=== PATIENT | female | born 1935 | race Caucasian/White ===

== ENCOUNTER → 2018-05-15 09:38 | Outpatient (CLI) | payer MEDICARE, SELFPAY ==
[2018-05-15 10:33] LABS: Alanine Aminotransferase 37 IU/L (9-52); Albumin 4.4 g/dL (3.5-5.0); Albumin Globulin Ratio 1.6 (1.0-2.8); Alkaline Phosphatase 57 U/L (38-126); Aspartate Aminotransferase 38 IU/L (14-36); BUN Creatinine Ratio 22.9 (6-22); Bilirubin Total 0.7 mg/dL (0.2-1.3); Blood Urea Nitrogen 16 mg/dL (7-17); Calcium 9.4 mg/dL (8.4-10.2); Carbon Dioxide 31 mmol/L (22-32); Chloride 99 mmol/L (98-107); Cholesterol 306 mg/dL (140-199); Estimated Glomerular Filt Rate > 60.0 mL/min (>60); Globulin 2.8 g/dL (1.7-4.1); Glucose 93 mg/dL (80-110); HEMOLYSIS 23 (0-50); Potassium 4.1 mmol/L (3.4-5.1); Sodium 138 mmol/L (137-145); Total Protein 7.2 g/dL (6.3-8.2); Triglycerides 106 mg/dL (35-150)
[2018-05-15 10:40] LABS: HDL Cholesterol 113 mg/dL (40-60); LDL Cholesterol Calculated 172 mg/dL (<100)
== END ==
PROVIDERS: PCP Internal Medicine; Visit Provider Internal Medicine
DX: I10 Essential (primary) hypertension (principal); J45.20 Mild intermittent asthma, uncomplicated
CPT/HCPCS: 36415; 80053; 80061

== ENCOUNTER 2018-09-08 06:43 | Day surgery (SDC) | payer MEDICARE, SELFPAY ==
[2018-09-08] VITALS (7 sets, daily range): BP systolic 96–166; BP diastolic 43–66; PULSE 68–84; RESP 10–16; TEMP 36.6–36.9; O2SAT 93–98; BMI 23.8
[2018-09-08] MEDS: SODIUM CHLORIDE 0.9% 1,000 ML 200 ML IV (07:30)
--- NOTE | 2018-09-08 07:56 | P.HP_ITS ---
History of Present Illness Date Patient Seen: 09/08/18 Time Patient Seen: 07:48 Chief complaint: [id number] Narrative: Patient is a woman here for with dysphagia of solids. She has been dilated multiple times in the past and may need dilatation at this time as well. Patient History Medical History Memory loss (Chronic) Essential hypertension (Chronic) Mild intermittent asthma without complication (Chronic) Gastroesophageal reflux disease with esophagitis (Chronic 06/05/15) History of adenomatous polyp of colon (Chronic 01/15/11) Surgical History Status post hysterectomy Family History Father Lung cancer Mother Ovarian cancer Sister MS (multiple sclerosis) Social History marital status: number of children: 3 household members: spouse lives independently: Yes caregiver/support person: No housing: house pets and animals: No education level: high school occupational status: other (Retired) Previous occupational history: [place] [employer]: Buddhism leisure activities: reading and other ([employer] on [employer]) Smoking Status: Never smoker Tobacco: How many years used: 0 quit status: quit date established (Never Started) second hand exposure: No alcohol intake: never substance use type: does not use Family & Social History Family History Father Lung cancer Mother Ovarian cancer Sister MS (multiple sclerosis) Social History: household members spouse lives independently Yes caregiver/support person No Tobacco & Substance use: Smoking Status Never smoker alcohol intake never Meds Home Medications Medication Instructions Recorded Confirmed Type Disabled Parking Permit See Rx Instructions .ROUTE 02/18/18 08/04/18 Rx .COMPLEX #1 unit lisinopril 20 mg tablet 20 mg PO QDAY #90 tab 05/18/18 09/08/18 Rx salmeterol 50 mcg/dose blister 1 inhalation INHALATION BID #3 each 06/22/18 09/08/18 Rx powder for inhalation ascorbate calcium 500 mg tablet 500 mg PO DAILY 07/16/18 09/08/18 History cholecalciferol (vitamin D3) 1,000 1,000 unit PO DAILY 07/16/18 09/08/18 History unit capsule coenzyme Q10 75 mg capsule 75 mg PO DAILY 07/16/18 09/08/18 History multivitamin tablet 1 tab PO DAILY 07/16/18 09/08/18 History vitamin B complex tablet 1 tab PO DAILY 07/16/18 09/08/18 History lorazepam 1 mg tablet 1 mg PO Q6H PRN #60 tab 07/21/18 09/08/18 Rx doxycycline hyclate 100 mg capsule 100 mg PO BID #10 cap 08/04/18 09/08/18 Rx albuterol sulfate 1 inh INHALATION Q4-6H PRN 09/08/18 09/08/18 History Allergies Allergy/AdvReac Type Severity Reaction Status Date / Time cephalexin Allergy Mild RASH Verified 08/04/18 16:24 Penicillins Allergy Mild RASH Verified 08/04/18 16:24 Sulfa (Sulfonamide AdvReac Severe SEVERE Verified 08/04/18 16:24 Antibiotics) ASTHMA trazodone AdvReac Mild asthma Verified 08/04/18 16:24 flare Review of Systems Review of Systems All systems reviewed & are unremarkable except as noted in HPI and below Respiratory Comments: Asthmatic Exam Vital Signs (past 8 hours): - 09/08/18 07:13 Temperature 97.8 F Pulse Rate 84 Respiratory Rate 15 Blood Pressure 166/66 H Pulse Oximetry 96 Oxygen Delivery Method Room Air Narrative Exam Narrative: Operative no apparent distress. On nonicteric. Wheezing right side.(she used her inhaler this morning). Heart regular rate and rhythm. I do not hear a murmur today. Her abdomen is soft nontender without mass. Alert and oriented x3. Assessment & Plan Assessment & Plan narrative: Patient for an EGD and possible dilatation. I have discussed the procedure including the dilatation. Risks of bleeding and perforation were detailed for her. She appears to understand and wishes to proceed.
--- NOTE | 2018-09-08 07:56 | PM.PREOP ---
Pre-operative Note Interval Note History & Physical reviewed/Exam performed by Physician: Yes Changes to H&P: No ASA Class (for procedural sedation): II
[2018-09-08] MEDS: TETRACAINE/BENZOCAINE/BUTAMBEN (CETACAINE) BOTTLE 1 SPRAY TOP (08:15)
[2018-09-08] MEDS: fentaNYL 250 MCG/5 ML INJ IV (08:20)
[2018-09-08] MEDS: MIDAZOLAM 5 MG/5 ML VIAL IV (08:21)
--- NOTE | 2018-09-08 08:23 | PM.OP.ENDO ---
Operative Date/Time/Diagnoses Date of procedure: 09/08/18 Time of procedure: 08:23 Pre-op diagnosis: Dysphagia of solids. History esophageal stricture Post-op diagnosis: same (Mild stricture distal esophagus) Procedure & Clinicians Study performed: EGD with through the scope balloon dilatation. Dilated to 18 mm diameter Same procedure as scheduled: Yes Indications: Dysphagia Surgeon: Eamon Bruce Procedure Notes SCOAP/Timeout: Performed Procedure in detail: The patient had topical anesthetic applied to oropharynx. She was placed in left lateral decubitus position and underwent IV sedation directed by the surgeon consisting of fentanyl and Versed. A bite block was inserted and the scope was advanced through it into the esophagus. The esophagus was unremarkable. There was mild narrowing of the distal esophagus. No evidence of Rose's esophagus. The stomach insufflated well. There were no lesions seen in the body, antrum or at the incisura. The pyloric channel was patent. The duodenum was unremarkable to the 4th part. The scope was brought back into the stomach and retroflexed. The proximal stomach normal in appearance except I could see the narrowed esophagus from below.. The scope was straightened and brought out through the esophagus again. A balloon was passed through the scope and the narrowing dilated to 18 mm. No other lesions were seen. The scope was removed and the patient tolerated the procedure well. Scope withdrawal time: Not applicable Sedation minutes: 12 Findings: stricture (Distal esophagus) Specimen(s): none sent Complications: none Recommendations: Start medication(s) (ranitidine) and Other recommendation (EGD for return of symptoms) Follow up: as needed
--- NOTE | 2018-09-08 08:26 | SUR.PHASEI ---
To PACU, arouses easily to voice, returned to sleep immediately. Resp unlabored. Skin warm and dry.
--- NOTE | 2018-09-08 08:45 | SUR.PHASEI ---
Drowsy, tolerating ice chips well. Oriented and appropriate.
--- NOTE | 2018-09-08 08:48 | SUR.PHASEII ---
HOB elevated, juice given: tolerating well.
--- NOTE | 2018-09-08 09:03 | SUR.PHASEII ---
0900 Instructions reviewed w/patient & spouse; Yoly Cui RN assisting patient with dressing.
[2018-09-08] MEDS: LIDOCAINE 4% SOLN 50 ML 20 ML TOP (09:18)
== END 2018-09-08 09:07 | disposition home or self-care (01) ==
PROVIDERS: PCP Internal Medicine; Visit Provider Specialist
PROC: 0DJ08ZZ Inspection of Upper Intestinal Tract, Via Natural or Artificial Opening Endoscopic (ICD-10-PCS; CPT 43235; principal; 2018-09-08 07:45)
DX: R13.10 Dysphagia, unspecified (principal); K22.2 Esophageal obstruction; K21.0 Gastro-esophageal reflux disease with esophagitis; I10 Essential (primary) hypertension; J45.909 Unspecified asthma, uncomplicated
CPT/HCPCS: 43249; 99152; J2250; J3010

== ENCOUNTER → 2019-03-26 16:02 | Outpatient (CLI) | payer MEDICARE, SELFPAY ==
--- NOTE | 2019-03-26 16:03 | DI.RAD.S_ITS ---
PROCEDURE: XR CHEST 2V INDICATIONS: cough TECHNIQUE: 2 views of the chest were acquired. COMPARISON: [facility], , CHEST 2 VIEW, 03/10/2017, 16:32. FINDINGS: Surgical changes and devices: Surgical clips projecting in the right upper quadrant.. Lungs and pleura: Scattered subsegmental atelectasis and/or scarring. No focal consolidation. No pleural effusions or pneumothorax. Central airway thickening suggestive of nonspecific bronchitis versus reactive airways disease Mediastinum: Mediastinal contours are normal. Heart size is normal. Bones and chest wall: Lateral curvature of the spine and diffuse discogenic changes. IMPRESSION: Diffuse scarring and atelectasis. No new focal consolidation or interval change. Hyperinflated lungs in keeping with chronic obstructive physiology Central airway thickening as before suggesting nonspecific bronchitis and/or reactive airways disease Dictated by: Panfilo Toussaint M.D. on 03/26/2019 at 17:21 Approved by: Panfilo Toussaint M.D. on 03/26/2019 at 17:23
== END ==
PROVIDERS: PCP Internal Medicine; Visit Provider Internal Medicine
DX: R05 Cough (principal); J98.4 Other disorders of lung; J98.11 Atelectasis
CPT/HCPCS: 71046

== ENCOUNTER → 2019-06-10 10:58 | Outpatient (CLI) | payer MEDICARE, SELFPAY ==
[2019-06-10 12:01] LABS: Add Manual Diff / Slide Review NO; Basophils Absolute Auto 100 /uL (0-100); Eosinophils Absolute Auto 200 /uL (0-450); Eosinophils Percent Auto 3.3 % (2-4); Hematocrit 43.3 % (36-46); Hemoglobin 14.4 g/dL (12.0-16.0); Lymphocytes Absolute Auto 1500 /uL (1100-4500); Lymphocytes Percent Auto 27.9 % (25-40); Mean Corpuscular HGB Conc 33.3 % (30-36); Mean Corpuscular Hemoglobin 29.3 PG (26-34); Mean Corpuscular Volume 87.9 fL (80-100); Monocytes Absolute Auto 600 /uL (0-900); Monocytes Percent Auto 11.9 % (3-14); Neutrophils Absolute Auto 3000 /uL (1500-7000); Neutrophils Percent Auto 55.9 % (50-75); Red Blood Cell Count 4.92 X10^6/uL (4.0-5.2); Red Cell Distribution Width 14.1 % (11.6-14.8); White Blood Cell Count 5.3 X10^3/uL (4.5-11.0)
[2019-06-10 12:02] LABS: Platelet Count 193 X10^3/uL (150-400)
[2019-06-10 12:05] LABS: Alanine Aminotransferase 31 IU/L (<35); Albumin 4.6 g/dL (3.5-5.0); Albumin Globulin Ratio 1.5 (1.0-2.8); Alkaline Phosphatase 82 U/L (38-126); Aspartate Aminotransferase 42 IU/L (14-36); BUN Creatinine Ratio 22.5 (6-22); Bilirubin Total 0.7 mg/dL (0.2-1.3); Blood Urea Nitrogen 18 mg/dL (7-17); Calcium 9.7 mg/dL (8.4-10.2); Carbon Dioxide 29 mmol/L (22-32); Chloride 102 mmol/L (98-107); Estimated Glomerular Filt Rate > 60.0 mL/min (>60); Globulin 3.1 g/dL (1.7-4.1); Glucose 101 mg/dL (80-110); HEMOLYSIS < 15 (0-50); Potassium 3.9 mmol/L (3.4-5.1); Sodium 140 mmol/L (137-145); Total Protein 7.7 g/dL (6.3-8.2)
[2019-06-10 12:08] LABS: C-Reactive Protein Quant < 0.5 mg/dL (<1.0)
[2019-06-10 12:24] LABS: Erythrocyte Sedimentation Rate 5 MM/HR (0-20)
[2019-06-10 13:06] LABS: TSH w/ Reflex to FT4 0.66 uIU/mL (0.47-4.68)
== END ==
PROVIDERS: PCP Internal Medicine; Referring Provider Internal Medicine; Visit Provider Internal Medicine
DX: F09 Unspecified mental disorder due to known physiological condition (principal); I10 Essential (primary) hypertension; J45.20 Mild intermittent asthma, uncomplicated
CPT/HCPCS: 36415; 80053; 84443; 85025; 85651; 86140

== ENCOUNTER → 2020-02-02 08:50 | Outpatient (CLI) | payer MEDICARE, SELFPAY ==
--- NOTE | 2020-02-02 08:51 | DI.RAD.S_ITS ---
PROCEDURE: XR LUMBAR SPINE MIN 4V INDICATIONS: low back pain TECHNIQUE: 5 total views of the lumbar spine were acquired, including bilateral oblique views. COMPARISON: [facility], RG, XR L-SPINE 2-3V, 11/23/2002, 8:55. [facility], CR, SPINE LUMB 2 OR 3VW, 04/24/2010, 8:19. [facility], MR, L-SPINE WITH AND WITHOUT CONTR, 11/01/2010, 13:46. FINDINGS: Bones: Eqld-vh-[id number] dextroconvex thoracolumbar scoliotic curvature is seen. There is minimal retrolisthesis seen at L1-L2 and L2-L3. Minimal anterolisthesis is seen at L5-S1. 5 nonrib-bearing, lumbar type vertebral bodies are seen. No displaced fractures are seen. No suspicious lytic or blastic lesions are seen. There is moderate to severe disc space narrowing seen at L5-S1. Moderate disc space narrowing is seen at L1-L2, with [id number]-[id number] disc space narrowing at L2-L3, L3-L4, and L4-L5. Relatively prominent lower lumbar spine facet arthropathy is seen. Soft tissues: Overlying bowel gas pattern is normal. Calcification is seen superior to the left femoral neck. Pelvic phleboliths are incidentally noted. Atherosclerotic calcification is noted. Cholecystectomy clips are seen. Oblique images: No pars defects. IMPRESSION: Apxl-[id number] dextroconvex thoracolumbar scoliosis. Focal L5-S1 degenerative change, with milder degenerative change is seen elsewhere. No pars defects are seen. Dictated by: Billy Winn M.D. on 02/02/2020 at 8:19 Approved by: Billy Winn M.D. on 02/02/2020 at 8:24
== END ==
PROVIDERS: PCP Internal Medicine; Referring Provider Physical Medicine & Rehabilitation; Visit Provider Physical Medicine & Rehabilitation
DX: M54.5 Low back pain (principal); M46.1 Sacroiliitis, not elsewhere classified; M41.85 Other forms of scoliosis, thoracolumbar region; M47.817 Spondylosis without myelopathy or radiculopathy, lumbosacral region
CPT/HCPCS: 72110; 99214

== ENCOUNTER 2020-02-08 12:46 | Outpatient (CLI) | payer MEDICARE, SELFPAY ==
[2020-02-08] VITALS (10 sets, daily range): BP systolic 129–210; BP diastolic 59–86; PULSE 68–85; RESP 12–20; TEMP 36.2; O2SAT 93–99
--- NOTE | 2020-02-08 12:47 | DI.RAD.S_ITS ---
PROCEDURE: PAIN SI JOINT INJECTION RAFAELA COMPARISON: None. INDICATIONS: SACROCOCCYGEAL DISORDER FINDINGS: Needle tip localized to the right inferior sacroiliac joint for steroid injection. IMPRESSION: Appropriate needle tip localization for SI joint injection on the right. Dictated by: Adrián Caro M.D. on 02/08/2020 at 15:40 Approved by: Adrián Caro M.D. on 02/08/2020 at 15:40
[2020-02-08 13:38] LABS: COVID19 -Nasal RAPID Negative (Negative)
[2020-02-08] MEDS: MIDAZOLAM 5 MG/5 ML VIAL IV (14:30)
[2020-02-08] MEDS: fentaNYL 100 MCG/2 ML INJ 50 MCG IV (14:30)
[2020-02-08] MEDS: BETAMETHASONE 30 MG/5 ML MDV 12 MG INJ (14:39)
[2020-02-08] MEDS: IOPAMIDOL 15 ML VIAL 3 ML INJ (14:39)
[2020-02-08] MEDS: BUPIVACAINE 0.5% (PF) VIAL 5 ML INJ (14:39)
--- NOTE | 2020-02-08 14:51 | PM.PROC.IR.1 ---
Date/Time/Diagnoses Date of procedure: 03/08/20 Time of procedure: 14:52 Pre-procedure diagnosis: Sacroiliac joint pain/DJD Post-procedure diagnosis: same Procedure Notes Procedure: Fluoroscopic guided contrast controlled bilateral sacroiliac joint injection Indications: Yesenia is referred by Dr. Yepez for treatment of bilateral sacroiliac joint DJD Physician: Gavin Pierce Total Fluoroscopy time (seconds): 10 Total sedation minutes: 17 Complications: none Procedure in detail & Post-procedure care: Description of procedure Fluoroscopic guided, contrast controlled bilateral sacroiliac joint injection Following review of allergies and review of potential side effects and complications, including, but not necessarily limited to, infection, allergic reaction, local tissue breakdown, temporary as well as permanent nerve injury, paralysis, stroke and possible , the patient indicated that they understood and agreed to proceed. An informed consent was signed by the patient, witnessed by a nurse, and placed in the patient's chart. Additionally, other treatment options including modalities, medications, and physical therapy were reviewed with the patient. After review of previous anaesthesic history and IV conscious sedation the patient was deemed safe to proceed with today?s procedure with IV conscious sedation as ASA class II designation. Safety time-out was performed to confirm patient ID, procedure to be performed and site of procedure. IV sedation was accomplished with a combination of 2mg Versed and 50mcg of Fentanyl were administered by the RN after DO order, titrated to patient comfort during the course of the procedure while the patient remained responsive to all verbal commands In the prone position following sterile prep and drape of the pelvic region, the hyper lucency on in the inferior aspect of the sacroiliac joint was identified fluoroscopically the skin was anesthetized be a 25 gauge 1.5 inch needle with approximately 2cc of 1% lidocaine solution. At this point, a 22 gauge 3 in spinal needle was atraumatically introduced and advanced under fluoroscopic guidance into the inferior aspect of the right sacroiliac joint. Following negative aspiration, approximately 0.3cc of [id number]-300 was injected confirming intra-articular placement without vascular uptake. Radiographic data, including multiple fluoroscopic views of the pelvis, reveals a spinal needle in the sacroiliac joint hyper lucent zone. Subsequent view show flow contrast tear superiorly and inferiorly within the joint capsule without vascular intrathecal uptake. At this point a total of 1cc of 0.5% Marcaine was combined with 1cc of 6mg of betamethasone was injected without incident. Attention was then refocused the left sacroiliac joint where the procedure was replicated. The procedure tolerated the procedure well without signs or symptoms of complications prior to transfer to the recovery area continued monitoring without incident. The patient was then transferred to the recovery area with a bur observed for an appropriate time after the injection. The patient reverted a vas score of 7 prior to the procedure and post-procedure vas of 1. Postop instructions The patient was provided with a pain like to continue to record the patient's response to the target specific procedure prior to the patient's follow-up visit with the referring physician. Additionally, specific post injection care instructions and a contact number to our office were provided if concerns arise regarding the possible complications associated with procedure are suspected.
--- NOTE | 2020-02-08 17:14 | PC.NURSE ---
MD AWARE OF PT BLOOD PRESSURE, dENIES ANY CHEST PAIN, SOB OR HEADACHE.
== END 2020-02-08 15:20 | disposition home or self-care (01) ==
LOC: RAD 12:47
PROVIDERS: PCP Internal Medicine; Referring Provider Internal Medicine; Visit Provider Physical Medicine & Rehabilitation
DX: M46.1 Sacroiliitis, not elsewhere classified (principal); M53.3 Sacrococcygeal disorders, not elsewhere classified; Z11.59 Encounter for screening for other viral diseases
CPT/HCPCS: 27096; 87635; 99152; J0702; J2250; J3010

== ENCOUNTER → 2020-07-27 12:09 | Outpatient (CLI) | payer MEDICARE, SELFPAY ==
[2020-07-27 13:56] LABS: Alanine Aminotransferase 29 IU/L (<35); Albumin 4.2 g/dL (3.5-5.0); Albumin Globulin Ratio 1.4 (1.0-2.8); Alkaline Phosphatase 55 U/L (38-126); Aspartate Aminotransferase 55 IU/L (14-36); BUN Creatinine Ratio 28.2 (6-22); Bilirubin Total 0.8 mg/dL (0.2-1.3); Blood Urea Nitrogen 22 mg/dL (7-17); Calcium 9.9 mg/dL (8.4-10.2); Carbon Dioxide 26 mmol/L (22-32); Chloride 104 mmol/L (98-107); Cholesterol 272 mg/dL (140-199); Estimated Glomerular Filt Rate > 60.0 mL/min (>60); Glucose 90 mg/dL (80-110); HDL Cholesterol 106 mg/dL (40-60); LDL Cholesterol Calculated 144 mg/dL (<100); Sodium 137 mmol/L (137-145); Total Protein 7.2 g/dL (6.3-8.2); Triglycerides 111 mg/dL (35-150)
[2020-07-27 13:57] LABS: HEMOLYSIS 94 (0-50); Potassium 4.9 mmol/L (3.4-5.1)
[2020-07-27 14:23] LABS: TSH w/ Reflex to FT4 0.53 uIU/mL (0.47-4.68)
== END ==
PROVIDERS: PCP Internal Medicine; Referring Provider Internal Medicine; Visit Provider Internal Medicine
DX: I10 Essential (primary) hypertension (principal); J45.20 Mild intermittent asthma, uncomplicated
CPT/HCPCS: 36415; 80053; 80061; 84443